=== PATIENT | female | born 1990 | race African-American/Black ===

== ENCOUNTER 2016-10-06 12:59 | Emergency (ER) | payer OTHER ==
[~2016-10-06] VITALS: Ht 172.7 cm; Wt 124.7 kg
--- NOTE | 2016-10-06 13:12 | NUR ---
Patient discharged in [employer] custody. Written after care instructions given to [employer], verbal ACI given to patient by Dr. Baltazar. Patient verbalizes understanding of instructions.
== END 2016-10-06 13:14 ==
LOC: ER 12:59
DX: S80.01XA Contusion of right knee, initial encounter (principal); Y92.89 Other specified places as the place of occurrence of the external cause; X58.XXXA Exposure to other specified factors, initial encounter; Y93.89 Activity, other specified; Y99.8 Other external cause status; J45.909 Unspecified asthma, uncomplicated
CPT/HCPCS: A4663